=== PATIENT | female | born 1965 | race Caucasian/White ===

== ENCOUNTER 2022-04-04 17:27 | Emergency (ER) | payer OTHER ==
[2022-04-04 18:11] LABS: Urine Blood Negative (Negative); Urine Glucose Negative (Negative); Urine Protein Negative (Negative); Urine Specific Gravity 1.015 (1.005-1.030); Urine pH 5.5 (5.0-7.0)
[2022-04-04 18:38] LABS: Absolute Lymphocytes (CBC) 3.2 K/uL (0.7-4.9); Hematocrit 39.3 % (36.0-45.0); Lymphocytes % 50.7 % (15.3-44.8); MCV 85.6 fL (80-100); MPV 10.6 fL (7.6-11.3); RBC Red Blood Cell Count 4.59 M/uL (3.86-4.86)
[2022-04-04] MEDS ORDERED: ACETAMINOPHEN 500 MG TAB ONE (18:50)
[2022-04-04] MEDS ORDERED: PANTOPRAZOLE 40 MG INJ ONE (18:50)
[2022-04-04 18:58] LABS: Albumin 4.2 g/dL (3.4-5.0); Bilirubin Total 0.3 mg/dL (0.2-1.0); Potassium 3.4 mmol/L (3.5-5.1); Protein, Total 8.1 g/dL (6.4-8.2); Troponin High Sensitivity 3.6 pg/mL (<58.9)
[2022-04-04] MEDS ORDERED: NA CHLORIDE 0.9% 1,000 ML ONE (19:07)
--- NOTE | 2022-04-04 19:47 | RAD REPORT ---
EXAM DESCRIPTION: US - Abdomen Exam Limited - 04/04/2022 7:40 pm CLINICAL HISTORY: Abdominal pain. COMPARISON: None. FINDINGS: Examination is limited as the patient was not NPO. The gallbladder wall is not thickened. A gallstone is not seen. Gallbladder is somewhat contracted The biliary tree is normal caliber. IMPRESSION: No gross abnormality is seen
--- NOTE | 2022-04-04 20:50 | RAD REPORT ---
EXAM DESCRIPTION: CT - Abdomen Pelvis W Contrast - 04/04/2022 8:31 pm CLINICAL HISTORY: Abdominal pain COMPARISON: none. TECHNIQUE: Computed axial tomography of the abdomen pelvis was obtained. 100 cc Isovue-300 was admin istered intravenously. Oral contrast was not requested which limits evaluation of bowel and appendix All CT scans are performed using dose optimization technique as appropriate and may include automated exposure control or mA/KV adjustment according to patient size. FINDINGS: Mild fatty liver Spleen, pancreas, adrenal and kidneys appear unremarkable. There is no evidence of diverticulitis. Normal appendix. No adnexal mass. Hysterectomy Small umbilical hernia IMPRESSION: No acute abnormality is displayed.
--- NOTE | 2022-04-04 21:14 | ER ---
Nurse's Notes [facility] Name: Dottie Villar Age: 56 yrs Sex: Female : 1965 Arrival Date: 04/04/2022 Time: 17:32 Bed 2 Private MD: Diagnosis: Upper abdominal pain, unspecified Presentation: 04/04 17:51 Chief complaint: Patient states: Upper abdominal pain, mostly in epigastric area, ph started today, denies N/V/D, no fever or chills. Coronavirus screen: Vaccine status: Patient reports being unvaccinated. Ebola Screen: No symptoms or risks identified at this time. Initial Sepsis Screen: Does the patient meet any 2 criteria? No. Patient's initial sepsis screen is negative. Does the patient have a suspected source of infection? No. Patient's initial sepsis screen is negative. Risk Assessment: Do you want to hurt yourself or someone else? Patient reports no desire to harm self or others. Onset of symptoms was April 04, 2022. 17:51 Method Of Arrival: Ambulatory ph 17:51 Acuity: VICENTA 3 ph Historical: - Allergies: 17:54 No Known Allergies; ph - PMHx: 17:54 Hypertensive disorder; ph - PSHx: 17:54 partial hysterectomy; ph - Social history:: Smoking status: Patient denies any tobacco usage or history of. Screenin:23 Abuse screen: Denies threats or abuse. Denies injuries from another. Nutritional aa9 screening: No deficits noted. Tuberculosis screening: No symptoms or risk factors identified. Fall Risk None identified. Assessment: 19:21 General: Appears uncomfortable, well groomed, Behavior is calm, cooperative. Pain: aa9 Complains of pain in epigastric area Pain radiates to left upper quadrant Is continuous. Respiratory: Airway is patent Respiratory effort is even, unlabored, Respiratory pattern is regular. GI: Bowel sounds present X 4 quads. Abd is soft. 20:21 Reassessment: Patient appears in no apparent distress at this time. Patient and/or jb4 family updated on plan of care and expected duration. Pain level reassessed. Patient is alert, oriented x 3, equal unlabored respirations, skin warm/dry/pink. 21:30 Reassessment: Patient appears in no apparent distress at this time. Patient and/or jb4 family updated on plan of care and expected duration. Pain level reassessed. Patient is alert, oriented x 3, equal unlabored respirations, skin warm/dry/pink. 22:01 Reassessment: Patient appears in no apparent distress at this time. Patient and/or jb4 family updated on plan of care and expected duration. Pain level reassessed. Patient is alert, oriented x 3, equal unlabored respirations, skin warm/dry/pink. Vital Signs: 17:51 BP 162 / 100; Pulse 77; Resp 20; Temp 98.2; Pulse Ox 100% on R/A; Weight 86.18 kg; ph Height 5 ft. 6 in. (167.64 cm); 19:20 BP 168 / 105; Pulse 67; Resp 15; Temp 98.1(O); Pulse Ox 97% on R/A; Pain 3/10; aa9 20:03 BP 167 / 99; Pulse 58; Resp 14; Pulse Ox 100% on R/A; aa9 17:51 Body Mass Index 30.67 (86.18 kg, 167.64 cm) ph ED Course: 17:32 Patient arrived in ED. dt4 17:44 [facility] kb 17:44 Kenya Seth MD is Attending Physician. kb 17:54 Triage completed. ph 17:55 Arm band placed on. ph 18:29 Initial lab(s) drawn, by me, sent to lab. Inserted saline lock: 22 gauge in right dh3 forearm, using aseptic technique. Blood collected. 18:36 Vi Pardo RN is Primary Nurse. kr3 19:42 Abdomen Limited US In Process Unspecified. EDMS 20:06 Patient has correct armband on for positive identification. Placed in gown. Adult w/ aa9 patient. 20:33 CT Abd/Pelvis - IV Contrast Only In Process Unspecified. EDMS 22:01 IV discontinued, intact, bleeding controlled, No redness/swelling at site. Pressure aa9 dressing applied. 22:01 No provider procedures requiring assistance completed. jb4 Administered Medications: 18:54 Drug: ProTONIX (pantoprazole) 40 mg Route: IVP; Site: right antecubital; kr3 19:30 Follow up: Response: No adverse reaction jb4 18:54 Drug: Tylenol 1000 mg Route: PO; kr3 19:30 Follow up: Response: No adverse reaction; Marked relief of symptoms jb4 18:56 Not Given (Patient Refused): Zofran (Ondansetron) 4 mg IVP once; over 2 minutes kr3 18:56 Not Given (Patient Refused): morphine 4 mg IVP once over 4 mins kr3 18:57 Drug: NS 0.9% 1000 ml Route: IV; Rate: 1 bolus; Site: right antecubital; kr3 19:45 Follow up: Response: No adverse reaction; IV Status: Completed infusion; IV Intake: jb4 1000ml Medication: 22:01 VIS not applicable for this client. jb4 Intake: 19:45 IV: 1000ml; Total: 1000ml. jb4 Outcome: 21:14 Discharge ordered by . kb 22:01 Discharged to home ambulatory, with family. jb4 22:01 Condition: stable 22:01 Discharge instructions given to patient, Instructed on discharge instructions, follow up and referral plans. Demonstrated understanding of instructions, follow-up care. 22:03 Patient left the ED. jb4 Signatures: Dispatcher [employer] EDMS Deborah Carter, EXCEL ANALYST-C EXCEL ANALYST-CkVirginia Nguyen, RN RN Paul Kline RN RN jb4 Vani Sherman3 Yudith Maria RN [place] [id number] Vi Pardo RN RN johny3 Carlene Haley4
--- NOTE | 2022-04-04 21:14 | EDPHYS ---
Physician Documentation [facility] Name: Dottie Villar Age: 56 yrs Sex: Female : 1965 Arrival Date: 04/04/2022 Time: 17:32 Bed 2 Private MD: ED Physician Kenya Seth HPI: 04/04 21:57 This 56 yrs old Female presents to ER via Ambulatory with complaints of Abdominal Pain. kb 21:57 The patient presents with abdominal pain in the epigastric area. The patient has not kb recently seen a physician. 21:59 Onset: The symptoms/episode began/occurred today. The symptoms do not radiate. kb Associated signs and symptoms: none. Pertinent negatives: nausea, vomiting, and diarrhea, fever. The symptoms are described as constant. Modifying factors: The symptoms are alleviated by nothing, the symptoms are aggravated by nothing. Severity of pain: At its worst the pain was moderate in the emergency department the pain is unchanged. The patient has not experienced similar symptoms in the past. Pt reports upper abd pain that started today. Denies n/v/d/f/c. . Historical: - Allergies: 17:54 No Known Allergies; ph - PMHx: 17:54 Hypertensive disorder; ph - PSHx: 17:54 partial hysterectomy; ph - Social history:: Smoking status: Patient denies any tobacco usage or history of. ROS: 21:57 Constitutional: Negative for fever, chills, and weight loss. kb 21:57 Abdomen/GI: Positive for abdominal pain. 21:57 All other systems are negative. Exam: 19:20 Head/Face: Normocephalic, atraumatic. ENT: Moist Mucous membranes Cardiovascular: kb Regular rate and rhythm with a normal S1 and S2. No gallops, murmurs, or rubs. No pulse deficits. Respiratory: Respirations even and unlabored. No increased work of breathing. Talking in full sentences Skin: Warm, dry with normal turgor. Normal color. MS/ Extremity: Pulses equal, no cyanosis. Neurovascular intact. Full, normal range of motion. Neuro: Awake and alert, GCS 15, oriented to person, place, time, and situation. Moves all extremities. Normal gait. Psych: Awake, alert, with orientation to person, place and time. Behavior, mood, and affect are within normal limits. 19:20 Constitutional: The patient appears alert, awake, uncomfortable. 19:20 ECG was reviewed by the Attending Physician. 19:20 Abdomen/GI: Inspection: abdomen appears normal, Bowel sounds: normal, Palpation: soft, in all quadrants, moderate abdominal tenderness, in the epigastric area and left upper quadrant. Vital Signs: 17:51 BP 162 / 100; Pulse 77; Resp 20; Temp 98.2; Pulse Ox 100% on R/A; Weight 86.18 kg; ph Height 5 ft. 6 in. (167.64 cm); 19:20 BP 168 / 105; Pulse 67; Resp 15; Temp 98.1(O); Pulse Ox 97% on R/A; Pain 3/10; aa9 20:03 BP 167 / 99; Pulse 58; Resp 14; Pulse Ox 100% on R/A; aa9 17:51 Body Mass Index 30.67 (86.18 kg, 167.64 cm) ph MDM: 17:58 Patient medically screened. kb 21:55 Data reviewed: vital signs, nurses notes. Data interpreted: Pulse oximetry: on room air kb is 100 %. Interpretation: normal. Counseling: I had a detailed discussion with the patient and/or guardian regarding: the historical points, exam findings, and any diagnostic results supporting the discharge/admit diagnosis, lab results, radiology results, the need for outpatient follow up, a family practitioner, a expansion joint finisher, to return to the emergency department if symptoms worsen or persist or if there are any questions or concerns that arise at home. ED course: Pt has appt for follow up with GI on Monday. Pt is nontoxic in appearance. Tylenol improved pt's pain. 04/04 17:59 Order name: CBC with Diff; Complete Time: 18:56 kb 04/04 17:59 Order name: CMP; Complete Time: 19:00 kb 04/04 17:59 Order name: Lipase; Complete Time: 19:00 kb 04/04 17:59 Order name: Abdomen Limited US; Complete Time: :59 kb 04/04 17:59 Order name: Troponin HS; Complete Time: 19:00 kb 04/04 18:12 Order name: Urine Dipstick-Ancillary; Complete Time: 18:14 EDMS 04/04 17:59 Order name: IV Saline Lock; Complete Time: 18:32 kb 04/04 17:59 Order name: EKG; Complete Time: 17:59 kb 04/04 19:59 Order name: CT Abd/Pelvis - IV Contrast Only; Complete Time: 20:56 kb 04/04 17:59 Order name: Labs collected and sent; Complete Time: 18:32 kb 04/04 17:59 Order name: EKG - Nurse/Tech; Complete Time: 18:43 kb 04/04 18:25 Order name: Urine Dipstick-Ancillary (obtain specimen); Complete Time: 18:25 dh3 EC:20 Rate is 63 beats/min. Rhythm is regular. QRS Elliott is Normal. MN interval is normal at kb 156 msec. QRS interval is normal at 76 msec. QT interval is normal at 409 msec. Administered Medications: 18:54 Drug: ProTONIX (pantoprazole) 40 mg Route: IVP; Site: right antecubital; kr3 19:30 Follow up: Response: No adverse reaction jb4 18:54 Drug: Tylenol 1000 mg Route: PO; kr3 19:30 Follow up: Response: No adverse reaction; Marked relief of symptoms jb4 18:56 Not Given (Patient Refused): Zofran (Ondansetron) 4 mg IVP once; over 2 minutes kr3 18:56 Not Given (Patient Refused): morphine 4 mg IVP once over 4 mins kr3 18:57 Drug: NS 0.9% 1000 ml Route: IV; Rate: 1 bolus; Site: right antecubital; kr3 19:45 Follow up: Response: No adverse reaction; IV Status: Completed infusion; IV Intake: jb4 1000ml Disposition: 04/05 07:50 STAFF ATTESTATION STATEMENT: I was immediately available onsite in the emergency sd2 department for consultation in the care of this patient. I did not see or examine this patient. Kenya Seth MD. Disposition Summary: 04/04/22 21:14 Discharge Ordered Location: Home kb Condition: Stable kb Diagnosis - Upper abdominal pain, unspecified kb Followup: kb - With: Emergency Department - When: As needed - Reason: Worsening of condition Followup: kb - With: Private Physician - When: 2 - 3 days - Reason: Recheck today's complaints, Continuance of care, Re-evaluation by your physician Discharge Instructions: - Discharge Summary Sheet kb - Abdominal Pain, Adult, Ugtl-am-Esaz kb Forms: - Medication Reconciliation Form kb - Thank You Letter kb - Antibiotic Education kb - Prescription Opioid Use kb Signatures: Dispatcher [employer] EDDeborah Man, EDWIGE JOHNSON-Virginia Stone RN RN Lane, Vani dh3 Kenya Seth MD MD sd2 Vi Pardo RN RN kr3 Paul Kline RN jb4
[2022-04-06 06:01] VITALS: TEMP 98.1
[2022-04-06 06:24] VITALS: BP 167/99; O2SAT 100
--- NOTE | 2022-04-06 06:35 | EKG ---
Test Date: 2022-04-04 Test Time: 18:44:26 Therapy Assistant: BAM MEASUREMENT RESULTS: Intervals: Rate: 63 RI: 156 QRSD: 76 QT: 400 QTc: 409 [place]: P: 64 RI: 156 QRS: 66 T: 47 INTERPRETIVE STATEMENTS: Normal sinus rhythm Normal ECG Compared to ECG 11/07/1993 17:01:00 Sinus tachycardia no longer present Ventricular premature complex(es) no longer present Electronically Signed On 04-06-22 06:31:33 CDT by Dawood Tobin
== END 2022-04-04 22:03 | disposition home or self-care (01) ==
LOC: ER 17:27
DX: R10.13 Epigastric pain (principal)
CPT/HCPCS: 96361; 93005; 85025; 36415; 81003; 84484; 83690; 80053; 74177; 76705; 96374; 99284; Q9967; C9113; J7030